=== PATIENT | male | born 1980 | race Two or more races ===

== ENCOUNTER 2017-01-13 02:18 | Emergency (ER) | payer OTHER ==
[2017-01-13 02:24] VITALS: RESP 20
[2017-01-13] MEDS ORDERED: KETOROLAC TROMETHAMINE 30 MG/ML SOL ONE (02:30)
[2017-01-13] MEDS ORDERED: SODIUM CHLORIDE 0.9% 1000ML 1,000 ML IV ONE (02:32)
[2017-01-13] MEDS ORDERED: KETOROLAC TROMETHAMINE 30 MG/ML SOL IV ONE (02:32)
[2017-01-13] MEDS ORDERED: ONDANSETRON HCL 4 MG/2 ML 4 MG in SODIUM CHLORIDE 0.9% 100 ML 100 ML IV ONE (02:32)
[2017-01-13] MEDS ORDERED: SODIUM CHLORIDE 0.9% FLUSH 10 ML SOL IV PRN (02:43)
[2017-01-13] MEDS ORDERED: ONDANSETRON HCL 4 MG/2 ML SOL IV ONE (02:43)
[2017-01-13] MEDS ORDERED: ONDANSETRON HCL 4 MG/2 ML SOL ONE (02:51)
[2017-01-13 03:21] LABS: ALBUMIN 3.7 gm/dl (3.4-5.0); CALCIUM 8.8 mg/dl (8.5-10.1); POTASSIUM 3.3 mMol/L (3.5-5.1)
[2017-01-13 03:29] VITALS: TEMP 98.1; O2SAT 97
[2017-01-13 03:34] LABS: BASOPHILS % (AUTO) 1 % (0-3); EOSINOPHILS % (AUTO) 2 % (0-9); HEMATOCRIT 40 % (39-53); MEAN CORPUSCULAR HGB CONC 35.8 gm/dl (32.0-36.0); MEAN CORPUSCULAR VOLUME 83 fL (80-100); MONOCYTES % (AUTO) 10.1 % (0-12); NEUTROPHILS % (AUTO) 57.2 % (37-80)
[2017-01-13] MEDS ORDERED: MAGNESIUM CITRATE SOL PO PRN (03:51)
[2017-01-13] MEDS ORDERED: MAGNESIUM CITRATE SOL ONE (03:53)
[2017-01-13 04:29] VITALS: BP 116/75; PULSE 84
== END 2017-01-13 04:25 | disposition home or self-care (01) ==
LOC: ED 02:18
DX: K59.00 Constipation, unspecified (principal)
CPT/HCPCS: 99285 ×3; 74020; 80053; 83605; 83690; 85025; 96365; 96374; 96375; 99284; J1885; J2405; 36415

== ENCOUNTER 2018-11-02 12:30 | Emergency (ER) | payer OTHER ==
[2018-11-02 13:13] LABS: BASOPHILS % (AUTO) 1 % (0-3); EOSINOPHILS % (AUTO) 3 % (0-9); HEMATOCRIT 43 % (39-53); HEMOGLOBIN 14.3 gm/dl (13.5-17.7); LYMPHOCYTES % (AUTO) 26.9 % (10-50); MEAN CORPUSCULAR HEMOGLOBIN 29.3 pg (27.0-32.0); MEAN CORPUSCULAR HGB CONC 33.4 gm/dl (32.0-36.0); MEAN CORPUSCULAR VOLUME 88 fL (80-100); MONOCYTES % (AUTO) 8.9 % (0-12)
[2018-11-02 13:25] LABS: ALBUMIN 3.8 gm/dl (3.4-5.0); BILIRUBIN,TOTAL 0.3 mg/dl (0.2-1.0); CALCIUM 8.8 mg/dl (8.5-10.1); CARBON DIOXIDE 28.5 mEq/L (21-32); CREATININE 0.84 mg/dl (0.80-1.30); POTASSIUM 4.1 mMol/L (3.5-5.1); TOTAL PROTEIN 7.5 gm/dl (6.4-8.2)
[2018-11-02 13:34] VITALS: BP 124/82; PULSE 77; RESP 20; TEMP 97.6; O2SAT 99
[2018-11-02 13:50] LABS: APPEARANCE,URINE Clear; BILIRUBIN,URINE NEGATIVE (NEGATIVE); COLOR,URINE Yellow; GLUCOSE, URINE (UA) NEGATIVE (NEGATIVE); KETONES,URINE NEGATIVE (NEGATIVE); LEUKOCYTE ESTERASE ,URINE NEGATIVE (NEGATIVE); NITRATE,URINE NEGATIVE (NEGATIVE); OCCULT BLOOD,URINE NEGATIVE (NEG-TRACE); PH,URINE 5.5; UROBILINOGEN,URINE 0.2 (0.2-1.0 EU)
[2018-11-02 13:56] LABS: BACTERIA RARE (< 1+); CRYSTALS NEGATIVE (0-3 AVE/HPF); EPITHELIAL CELLS 0-2 (SQUAMOUS); RBC,URINE 0-2 (0-3AV/HPF); WBC,URINE 0-2 (0-5AV/HPF)
== END 2018-11-02 14:45 | disposition home or self-care (01) | DRG 392 ==
LOC: ED 12:30
DX: K59.00 Constipation, unspecified (principal)
CPT/HCPCS: 36415; 74018; 80053; 81001; 85025; 99282; 99283